=== PATIENT | male | born 1980 | race American Indian/Alaskan Native ===

== ENCOUNTER 2019-08-20 22:16 | Emergency (ER) | payer MEDICARE ==
--- NOTE | 2019-08-20 23:29 | Cat Scan Report ---
CT HEAD WITHOUT CONTRAST INDICATION: sinclair with n v and high bp TECHNIQUE: Axial slices were obtained through the head. Coronal and sagittal reformatted images were obtained. COMPARISON: None available. FINDINGS: There is no intracranial hemorrhage or extra-axial fluid collection. Ventricles, basilar cisterns, an d sulci appear within normal limits for age. There is no mass lesion or midline shift. No acute alejandrina torial infarct is identified. There are hypodensities in the periventricular white matter. These are most prominent adjacent to the frontal horn of the right lateral ventricle and in the right parietal white matter that are noted bilaterally. Bone windows demonstrate no acute osseous abnormality. There is been prior maxillary sinus surgery on the left. Paranasal sinuses appear clear. TECHNIQUE: All CT scans at this facility use dose modulation, iterative reconstruction, automated ex posure control, weight based dosing, when appropriate, to reduce radiation dose to as low as reasonab ly achievable. IMPRESSION: 1. No intracranial hemorrhage is seen. There are areas of decreased attenuation in the periventricula r white matter more prominent on the right. This likely represents microvascular ischemic changes. No large territorial infarct is identified. Signer Name: John Borjas MD Signed: 08/20/2019 11:24 PM Workstation Name: [id number]
[2019-08-21] MEDS ORDERED: HYDROcodone/ACETAMINOPHEN 5-325 MG TAB PO ONE (00:24)
--- NOTE | 2019-08-21 00:27 | Emergency Department Report ---
HPI - General Chief Complaint: Headache Time Seen by Provider: 08/21/19 00:12 - HPI HPI: Room 18 The patient is a 39-year-old male present with chief complaint of headache. The patient states this evening at 17: 3 0 while driving he developed a frontal headache. The patient states eventually he noticed that it was affecting his driving so he pulled over. The patient states he sat on the side of the road and eventually became nauseous and vomited once. Patient states she then got back in the truck and continue to drive but eventually asked that ambulance transport to the hospital for further evaluation. Patient denies any preceding trauma. Patient denies history of fever. Patient describes his headache as frontal in location and dull in nature. Patient currently gives his headache a score of 4/10. ED Past Medical Hx - Past Medical History Previous Medical History?: Yes Hx Hypertension: Yes Hx Diabetes: Yes - Surgical History Past Surgical History?: No - Family History Family history: no significant - Social History Smoking Status: Never Smoker Substance Use Type: None (Denies illicit drug use) - Medications Home Medications: Home Medications Medication Instructions Recorded Confirmed Last Taken Type Butalb/Acetamin/Caff 50-325-40 1 - 2 tab PO Q8HR PRN #10 tablet 08/21/19 Unknown Rx [Fioricet 50-325-40] ED Review of Systems ROS: Stated complaint: SORENSEN,VOMITTING Other details as noted in HPI Constitutional: no symptoms reported Eyes: denies: eye pain ENT: denies: throat pain Respiratory: no symptoms reported Endocrine: no symptoms reported Gastrointestinal: nausea, vomiting Genitourinary: denies: dysuria Musculoskeletal: denies: back pain Neurological: headache Physical Exam - Physical Exam Vital Signs: Vital Signs 08/20/19 22:47 Temperature 97.6 F Pulse Rate 103 H Respiratory 20 Rate Blood Pressure 182/110 O2 Sat by Pulse 96 Oximetry Physical Exam: GENERAL: The patient is well-developed well-nourished male lying on stretcher not appearing to be in acute distress. [] HEENT: Normocephalic. Atraumatic. Extraocular motions are intact. Patient has moist mucous membranes. NECK: Supple. No meningitic signs are noted. There is no adenopathy noted. CHEST/LUNGS: Clear to auscultation. There is no respiratory distress noted. HEART/CARDIOVASCULAR: Regular. There is no tachycardia. There is no gallop rub or murmur. ABDOMEN: Abdomen is soft, nontender. Patient has normal bowel sounds. There is no abdominal distention. SKIN: There is no rash. There is no edema. There is no diaphoresis. NEURO: The patient is awake, alert, and oriented. The patient is cooperative. The patient has no focal neurologic deficits. The patient has normal speech. Cranial nerves II through XII grossly intact, no drift MUSCULOSKELETAL: There is no evidence of acute injury. ED Course Vital Signs 08/20/19 22:47 Temperature 97.6 F Pulse Rate 103 H Respiratory 20 Rate Blood Pressure 182/110 O2 Sat by Pulse 96 Oximetry - Reevaluation(s) Reevaluation #1: 08/21/19 01:32 BP 145/71 ED Medical Decision Making - Radiology Data Radiology results: report reviewed (CT head), image reviewed (CT head) CT head (read by radiologist)-no intracranial hemorrhage is seen. There are areas of decreased attenuation in the periventricular white matter more prominent on the right. This likely represents microvascular ischemic changes. No large territorial infarct is identified. - Differential Diagnosis Hypertensive urgency, ICH, intracranial mass Critical care attestation.: If time is entered above; I have spent that time in minutes in the direct care of this critically ill patient, excluding procedure time. ED Disposition Clinical Impression: Hypertensive urgency, Headache Disposition: TO HOME OR SELFCARE Is pt being admited?: No Does the pt Need Aspirin: No Condition: Stable Instructions: Hypertensive Crisis (ED) Additional Instructions: Return to the emergency department should you develop worsening symptoms, inability to tolerate food or liquids, high fever or any other concerns Prescriptions: Butalb/Acetamin/Caff 50-325-40 [Fioricet 50-325-40] 1 - 2 tab PO Q8HR PRN #10 tablet PRN Reason: Headache Referrals: PRIMARY CARE, [Primary Care Provider] - 3-5 Days [facility] [Outside] - 3-5 Days Time of Disposition: 01:33
[2019-08-21] MEDS ORDERED: cloNIDine 0.2 MG TAB PO ONE (00:41)
[2019-08-21] MEDS ORDERED: cloNIDine 0.2 MG TAB ONE (00:43)
[2019-08-21 01:33] VITALS: BP 145/71
== END 2019-08-21 01:49 | disposition home or self-care (01) ==
LOC: ED 22:16
DX: I16.0 Hypertensive urgency (principal); R51 Headache; E11.9 Type 2 diabetes mellitus without complications; Z79.899 Other long term (current) drug therapy
CPT/HCPCS: 70450

== ENCOUNTER 2020-10-02 08:12 | Day surgery (SDC) | payer MEDICARE ==
[~2020-10-02 08:12] MED LIST: ceFAZolin/Water 2 GM/20 ML 2 GM/20 ML SYRINGE IV NR
[2020-10-02] MEDS ORDERED: SODIUM CHLORIDE 0.9% 1000 ML 1,000 ML ONE (08:23)
[2020-10-02] MEDS ORDERED: BACTERIOSTATIC SODIUM CHLORIDE 0.9% 30 ML VIAL INFILTRATI ONE (08:24)
[2020-10-02] MEDS ORDERED: SODIUM CHLORIDE 0.9% 1000 ML 1,000 ML IV SCH (09:00)
[2020-10-02 09:10] LABS: Hematocrit 33.1 % (35.5-45.6); Hemoglobin 11.1 gm/dl (11.8-15.2); Mean Corpuscular HGB Conc 34 % (32-34); Mean Corpuscular Volume 90 fl (84-94); Platelet Count 293 K/mm3 (140-440); Red Blood Count 3.67 M/mm3 (3.65-5.03); Red Cell Distribution Width 15.7 % (13.2-15.2)
[2020-10-02 09:27] LABS: Calcium 9.7 mg/dL (8.4-10.2)
--- NOTE | 2020-10-02 09:30 | Anesthesia Day of Surgery ---
Anesthesia Day of Surgery - Day of Surgery Patient Examined: Yes Patient H&P Reviewed: Yes Patient is NPO: Yes Beta Blockers: No Cardiac Clearance: No Pulmonary Clearance: No Jhony's Test: N/A
--- NOTE | 2020-10-02 09:31 | Anesthesia Consultation ---
Anesthesia Consult and Med Hx Date of service: 10/02/20 - Airway Anesthetic Teeth Evaluation: Edentulous ROM Head & Neck: Adequate Mental/Hyoid Distance: Adequate Mallampati Class: Class III Intubation Access Assessment: Possibly Difficult - Pulmonary Exam CTA: Yes - Cardiac Exam Cardiac Exam: RRR - Pre-Operative Health Status ASA Pre-Surgery Classification: ASA4 Proposed Anesthetic Plan: IV Sedation Nerve Block: Axillary - Cardiovascular System Hx Hypertension: Yes - Central Nervous System CVA: Yes (Had 3 strokes in 1 week 05/2020- No defecits) Hx Psychiatric Problems: No - Gastrointestinal Hx Ulcer: Yes (07/2020) - Endocrine Hx End Stage Renal Disease: Yes Hx Non-Insulin Dependent Diabetes: Yes - Other Systems Hx Cancer: No Hx Obesity: Yes - Additional Comments Anesthesia Medical History Comments: Dialysis thurs. Past sx: permacath, circumcision
[2020-10-02] MEDS ORDERED: BUPIVACAINE-EPINEPHRINE/PF 0.5%-1:200,000 (30 ML) VIAL INFILTRATI ONE (09:38)
[2020-10-02] MEDS ORDERED: PROTAMINE SULFATE 50 MG/5 ML INJ ONE (09:44)
[2020-10-02] MEDS ORDERED: PAPAVERINE 60 MG/2 ML INJ SDV ONE (09:44)
[2020-10-02] MEDS ORDERED: LIDOCAINE (1%) 10 MG/1 ML VIAL 20 ML MDV ONE (09:44)
[2020-10-02] MEDS ORDERED: rifAMPin 600 MG VIAL ONE (09:45)
[2020-10-02] MEDS ORDERED: SODIUM CHLORIDE 0.9% 250ML 0 ML ONE (09:45)
[2020-10-02] MEDS ORDERED: SODIUM CHLORIDE P/F VIAL 10 ML 0 ML ONE (09:45)
[2020-10-02] MEDS ORDERED: BUPIVACAINE/PF (0.5%) 5 MG/1 ML 30 ML VIAL INFILTRATI ONE (09:45)
[2020-10-02] MEDS ORDERED: SODIUM CHLORIDE 0.45% 500 ML IV ONE (09:45)
[2020-10-02] MEDS ORDERED: HEPARIN 10,000 UNITS/10 ML VIAL ONE (09:45)
[2020-10-02] MEDS ORDERED: NITROGLYCERIN SYRINGE 3 ML ONE (09:46)
[2020-10-02] MEDS ORDERED: MIDAZOLAM 2 MG/2 ML INJ IV NR (10:00)
[2020-10-02] MEDS ORDERED: propofoL 200 MG/20 ML VIAL IV ONE ×3 (10:29→11:06)
[2020-10-02] MEDS ORDERED: LIDOCAINE MPF (2%) 20 MG/1 ML VIAL 5 ML ONE (10:31)
[2020-10-02] MEDS ORDERED: HYDROmorphone 1 MG/1 ML INJ ONE (10:36)
[2020-10-02] MEDS ORDERED: MIDAZOLAM 2 MG/2 ML INJ ONE (10:36)
[2020-10-02] MEDS ORDERED: HEPARIN 10,000 UNITS/10 ML VIAL IV ONE (11:29)
[2020-10-02] MEDS ORDERED: SODIUM CHLORIDE 0.9% 500 ML IVPB IV ONE (11:29)
[2020-10-02] MEDS ORDERED: PHENYLEPHRINE/NS 1,000 MCG/10 ML SYRINGE (OR USE) IV ONE (11:34)
[2020-10-02] MEDS ORDERED: ONDANSETRON 4 MG/2 ML INJ ONE (11:47)
--- NOTE | 2020-10-02 12:15 | Short Stay Summary ---
Short Stay Documentation Date of service: 10/02/20 Narrative H&P: See H&P - History H&P: obtained from office - Allergies and Medications Current Medications: Allergies No Known Allergies Allergy (Verified 09/29/20 09:23) Home Medications Medication Instructions Recorded Confirmed Last Taken Type Pantoprazole [Protonix] 40 mg PO QDAY 10/01/20 10/01/20 09/30/20 History amLODIPine 10 mg PO DAILY 10/01/20 10/01/20 09/30/20 History glipiZIDE XL [Glucotrol Xl] 10 mg PO DAILY 10/01/20 10/01/20 09/30/20 History Apixaban [Eliquis] 2.5 mg PO DAILY 10/02/20 10/02/20 3 Weeks Ago History ~09/11/20 AtorvaSTATin [Lipitor] 40 mg PO QHS 10/02/20 10/02/20 09/30/20 History Active Medications Sodium Chloride (Nacl 0.9% 1000 Ml) 1,000 mls @ 42 mls/hr IV DIRECT MARIAMA Last Admin: 10/02/20 08:55 Dose: 42 mls/hr Documented by: Cefazolin Sodium 3 gm/ Sodium (Chloride) 100 mls @ 100 mls/30 min IV PREOP NR; Protocol Stop: 10/02/20 13:00 Midazolam HCl (Midazolam 2 Mg/2 Ml Inj) 2 mg IV PREOP NR Stop: 10/02/20 23:59 Last Admin: 10/02/20 10:03 Dose: 2 mg Documented by: - Brief post op/procedure progress note Date of procedure: 10/02/20 Pre-op diagnosis: End-Stage Renal Disease Post-op diagnosis: same Procedure: Creation of Left Brachiocephalic Arteriovenous Fistula Anesthesia: MAC, regional Surgeon: BIN GALO Estimated blood loss: minimal Pathology: none Condition: stable - Disposition Condition at discharge: Good Disposition: DC-01 TO HOME OR SELFCARE Short Stay Discharge Plan Activity: other (No heavy lifting with left arm for 2 weeks. Please use a stress ball with left hand as often as possible.) Wound: open to air, keep clean and dry, other (Okay to wash the wound with soap and water but do not soak in water for 2 weeks.) Follow up with: BIN GALO MD [Staff Physician] - 14 Days Prescriptions: HYDROcodone/APAP 7.5-325 [[place] 7.5/325] 1 each PO Q6HR PRN #30 tablet PRN Reason: Pain
--- NOTE | 2020-10-02 12:16 | Operative Report ---
Operative Report Operative Report: Date of procedure: 10/02/2020 Pre-operative diagnosis: End-Stage Renal Disease Post-operative diagnosis: End-Stage Renal Disease Procedure(s): Creation of Left brachial Artery to Cephalic Vein Arteriovenous Fistula Surgeon: Ryan Denise MD Hearing Care Practitioner: None Anesthesia: Regional/MAC EBL: Minimal Counts: Correct Complications: None Condition: Stable Findings: Successful creation of left brachiocephalic arteriovenous fistula with palpable thrill and palpable radial pulse at the completion of the case. Specimen: None Indications: The patient is a 40-year-old male with a history of end-stage renal disease who is currently on hemodialysis through a right internal jugular permacath. He is in need of long-term dialysis access and was found to be a suitable candidate for creation of a left arm arteriovenous fistula. He was given the risk, benefits, and alternative procedures and consented to the procedure. Description of Procedure: The patient had a regional block of the patient's left arm performed in the preoperative area prior to being transported to the operating room. Once the regional block was performed the patient was transported to the operating room and adequate sedation was given. When the patient was sedated a timeout was performed and the patient's left arm was then prepped and draped in normal sterile fashion. A transverse incision was then made and carried down to the cephalic vein using sharp dissection. The vein was dissected out both proximally and distally and suture ligated and divided distally. I flushed the vein with heparinized saline and flow was controlled with a bulldog clamp. I then dissected out the brachial artery through this incision circumferentially both proximal and distal and controlled the artery with vessel loops. I systemically heparinized the patient with 3000 units of heparin IV and used angled DeBakey clamps to control flow through the artery. I created an arteriotomy using an 11 blade and See scissors. I created an end to side anastomosis between the cephalic vein and brachial artery using a 6-0 Prolene in running fashion. Prior to completing the anastomosis I flashed the artery both proximally and distally and then flushed the anastomosis with heparinized saline to remove any debris. I then completed the anastomosis and removed all clamps allowing flow into the fistula which had an adequate thrill. I achieved hemostasis with a combination of Quick Clot and electrocautery. Once hemostasis had been achieved I closed the wound in 2 layers using a 3-0 Vicryl in a running fashion in the deep dermal layer and a 4-0 Monocryl in running fashion in the subcuticular layer. I then dressed the wound with Dermabond. The patient tolerated the procedure well. All sponge, needle, and instrument counts were correct. The patient was taken to the recovery area in stable condition.
--- NOTE | 2020-10-02 14:48 | Electrocardiograph Report ---
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
--- NOTE | 2020-10-02 15:33 | Post Anesthesia Evaluation ---
- Post Anesthesia Evaluation Patient Participated: Yes Airway Patent: Yes Stable Respiratory Function: Yes Nausea/Vomiting: No Temp > 96.8F: Yes Pain Manageable: Yes Adequeate Hydration: Yes Anesthesia Complications: No Block Receding Appropriately: Not Applicable Patient on Ventilator: No
[2020-10-02 19:46] VITALS: BP 148/82
== END 2020-10-02 08:13 | disposition home or self-care (01) ==
LOC: OR 08:12
PROVIDERS: ATTEND Surgery Vascular Surgery
DX: I12.0 Hypertensive chronic kidney disease with stage 5 chronic kidney disease or end stage renal disease (principal); E11.22 Type 2 diabetes mellitus with diabetic chronic kidney disease; N18.6 End stage renal disease; E78.00 Pure hypercholesterolemia, unspecified; E66.9 Obesity, unspecified; Z68.38 Body mass index [BMI] 38.0-38.9, adult; Z98.890 Other specified postprocedural states; Z86.73 Personal history of transient ischemic attack (TIA), and cerebral infarction without residual deficits
CPT/HCPCS: 36415; 36821; 64417; 76942; 80048; 82962; 85027; 93005; J0690; J1170; J1644; J2250; J2370; J2405; J2704; J7030; J7040; J2440; J2720; J3490; J7050